=== PATIENT | female | born 1990 | race Caucasian/White ===

== ENCOUNTER → 2023-05-31 10:10 | Outpatient (BNVA) | payer BC, SELFPAY | PROVIDERS: Referring Provider Internal Medicine; Visit Provider Internal Medicine | DX: E05.90 Thyrotoxicosis, unspecified without thyrotoxic crisis or storm (principal); R00.0 Tachycardia, unspecified | CPT/HCPCS: 36415; 83516; 84432; 84439; 84443; 84480; 86376; 86800 ==

== ENCOUNTER 2024-03-28 11:14 | Outpatient (CLI) | payer BC, SELFPAY ==
[2024-03-28 11:52] LABS: Thyroid Stimulating Hormone 0.84 uIU/mL (0.27-4.20)
[2024-03-29 10:06] LABS: T3 Total 91 ng/dL (76-181)
== END 2024-03-28 11:15 | disposition home or self-care (01) ==
LOC: LAB 11:16
PROVIDERS: PCP Internal Medicine; Visit Provider Internal Medicine
DX: E05.00 Thyrotoxicosis with diffuse goiter without thyrotoxic crisis or storm (principal); E06.3 Autoimmune thyroiditis
CPT/HCPCS: 36415; 84439; 84443; 84480

== ENCOUNTER → 2024-07-25 11:23 | Outpatient (BNVA) | payer BC, SELFPAY | PROVIDERS: PCP Internal Medicine; Visit Provider Internal Medicine | DX: E06.3 Autoimmune thyroiditis (principal); E05.00 Thyrotoxicosis with diffuse goiter without thyrotoxic crisis or storm; R63.4 Abnormal weight loss | CPT/HCPCS: 36415; 84439; 84443 ==